=== PATIENT | female | born 1970 | race Hispanic/Latino ===

== ENCOUNTER 2018-11-09 23:03 | Emergency (ER) | payer BC | END 2018-11-10 01:40 | disposition home or self-care (01) | LOC: EDH 23:03 | DX: K59.00 Constipation, unspecified (principal); E11.9 Type 2 diabetes mellitus without complications; I10 Essential (primary) hypertension; E78.00 Pure hypercholesterolemia, unspecified; Z90.710 Acquired absence of both cervix and uterus; Z90.49 Acquired absence of other specified parts of digestive tract; Z79.899 Other long term (current) drug therapy ==

== ENCOUNTER 2023-01-17 19:20 | Observation (INO) | payer BC, OTHER ==
[~2023-01-17] VITALS: Ht 167.6 cm; Wt 98.4 kg
[2023-01-17 22:14] LABS: BASOPHILS # (AUTO) 0.07 K/uL (0.00-0.20); BASOPHILS % (AUTO) 0.7 % (0.0-5.0); EOSINOPHILS # (AUTO) 0.21 K/uL (0.00-0.70); EOSINOPHILS % (AUTO) 2.1 % (0.0-8.0); HEMATOCRIT 39.7 % (36-48); IMMATURE GRANULOCYTE ABSOLUTE 0.02 K/uL (0-1); LYMPHOCYTES # (AUTO) 3.9 K/uL (1.0-4.8); LYMPHOCYTES % (AUTO) 39.2 % (21.0-51.0); MEAN CORPUSCULAR HEMOGLOBIN 30.4 pg (27.0-33.0); MEAN CORPUSCULAR HGB CONC 33.8 g/dL (32.0-36.0); MONOCYTES # (AUTO) 0.7 K/uL (0.1-1.0); MONOCYTES % (AUTO) 6.9 % (3.0-13.0); NEUTROPHILS % (AUTO) 50.9 % (40.0-77.0); PLATELET COUNT (AUTO) 218 K/uL (130-400); RED BLOOD CELL COUNT(AUTO) 4.41 MIL/uL (4.00-5.50); WHITE BLOOD COUNT (AUTO) 9.8 K/uL (4.8-10.8)
[2023-01-17 22:17] LABS: APPEARANCE,URINE CLEAR (CLEAR); BILIRUBIN,URINE NEGATIVE (NEGATIVE); COLOR,URINE LIGHT-YELLOW (YELLOW); GLUCOSE, URINE (UA) NEGATIVE (NEGATIVE); KETONES,URINE NEGATIVE (NEGATIVE); LEUKOCYTE ESTERASE ,URINE NEGATIVE Leu/uL (NEGATIVE); NITRATE,URINE 2+ (NEGATIVE); OCCULT BLOOD,URINE NEGATIVE (NEGATIVE); PH,URINE 5.5 (5.0-8.0); PROTEIN,URINE NEGATIVE (NEGATIVE); UROBILINOGEN,URINE 0.2 mg/dL (0.2-1.0)
[2023-01-17 22:18] LABS: ADD UA MICROSCOPIC YES
[2023-01-17 22:21] LABS: BACTERIA,URINE FEW /HPF (None Seen); MUCUS,URINE RARE LPF (None Seen); RBC,URINE 0-1 /HPF (0-1); SQUAMOUS EPITHELIAL CELL,UR RARE /HPF (0-2)
[2023-01-17 22:22] LABS: CREATININE 0.7 mg/dL (0.5-1.5); POTASSIUM 3.8 mmol/L (3.5-5.1)
[2023-01-17 22:30] LABS: ALBUMIN 3.7 g/dL (3.5-5.0); BILIRUBIN,TOTAL 0.5 mg/dL (0.2-1.0); TOTAL PROTEIN, SERUM 7.7 g/dL (6.0-8.3)
[2023-01-18] MEDS ORDERED: IOHEXOL-350 75 ML VIAL IV ONE (01:23)
[2023-01-18] MEDS ORDERED: GLUCAGON 1MG KIT 1 MG ML IM PRN (04:30)
[2023-01-18] MEDS ORDERED: POTASSIUM CHLORIDE 20MEQ/100ML 100 ML IV PRN (04:30)
[2023-01-18] MEDS ORDERED: CEFTRIAXONE 1G VIAL 1 GM in 0.9%NACL 50ML 50 ML IV SCH (04:30)
[2023-01-18] MEDS ORDERED: ONDANSETRON 4MG INJ IV PRN (04:30)
[2023-01-18] MEDS ORDERED: MAGNESIUM 2GM PREMIX 50ML 50 ML IV PRN (04:30)
[2023-01-18] MEDS ORDERED: DEXTROSE 50%-WATER 50 ML DISP.SYRIN IV PRN (04:30)
[2023-01-18 05:10] VITALS: BP 104/65; PULSE 70; RESP 20
[2023-01-18] MEDS: 0.9%NACL 1000ML 1,000 ML IV SCH (05:20)
[2023-01-18 05:28] LABS: BASOPHILS # (AUTO) 0.05 K/uL (0.00-0.20); BASOPHILS % (AUTO) 0.6 % (0.0-5.0); EOSINOPHILS # (AUTO) 0.19 K/uL (0.00-0.70); EOSINOPHILS % (AUTO) 2.4 % (0.0-8.0); HEMATOCRIT 36.9 % (36-48); IMMATURE GRANULOCYTE ABSOLUTE 0.02 K/uL (0-1); LYMPHOCYTES % (AUTO) 38.1 % (21.0-51.0); MEAN CORPUSCULAR HEMOGLOBIN 29.9 pg (27.0-33.0); MEAN CORPUSCULAR HGB CONC 33.9 g/dL (32.0-36.0); MEAN CORPUSCULAR VOLUME 88.3 fL (79-99); MONOCYTES # (AUTO) 0.6 K/uL (0.1-1.0); MONOCYTES % (AUTO) 8.2 % (3.0-13.0); NEUTROPHILS % (AUTO) 50.4 % (40.0-77.0); PLATELET COUNT (AUTO) 202 K/uL (130-400); RED BLOOD CELL COUNT(AUTO) 4.18 MIL/uL (4.00-5.50); RED CELL DISTRIBUTION WIDTH 13.2 % (11.0-15.5); WHITE BLOOD COUNT (AUTO) 7.8 K/uL (4.8-10.8)
[2023-01-18 05:57] LABS: ALBUMIN 3.1 g/dL (3.5-5.0); BILIRUBIN,TOTAL 0.4 mg/dL (0.2-1.0); CREATININE 0.7 mg/dL (0.5-1.5); POTASSIUM 3.9 mmol/L (3.5-5.1); THYROID STIMULATING HORMONE 1.64 uIU/mL (0.36-3.74); TOTAL PROTEIN, SERUM 6.8 g/dL (6.0-8.3); URIC ACID 3.1 mg/dL (2.6-7.2)
[2023-01-18 05:58] LABS: HEMOGLOBIN A1C 5.1 % (4.0-6.0)
[2023-01-18] MEDS: INSULIN HUMULIN R 100 UNIT/ML 3ML SQ SCH ×4 (06:15→21:15)
[2023-01-18] MEDS: CEFTRIAXONE 1G VIAL IVPB SCH (06:34)
[2023-01-18 08:00] VITALS: BP 118/68; PULSE 71; RESP 17; O2SAT 97
[2023-01-18] MEDS: FAMOTIDINE 20MG VIAL IV SCH ×2 (08:36→21:12)
[2023-01-18 12:00] VITALS: BP 122/74; PULSE 70; RESP 17
[2023-01-18 16:00] VITALS: BP 140/74; PULSE 81; RESP 17
[2023-01-18 20:00] VITALS: BP 119/68; PULSE 77; RESP 17; O2SAT 100
[2023-01-18] MEDS ORDERED: ATORVASTATIN 40 MG TABLET PO SCH (21:00)
[2023-01-19] VITALS: BP 120/66; PULSE 79; RESP 18
[2023-01-19 04:00] VITALS: BP 172/70; PULSE 76; RESP 18
[2023-01-19] MEDS: CEFTRIAXONE 1G VIAL IVPB SCH (05:09)
[2023-01-19] MEDS: 0.9%NACL 1000ML 1,000 ML IV SCH (05:11)
[2023-01-19] MEDS: INSULIN HUMULIN R 100 UNIT/ML 3ML SQ SCH ×2 (05:28→12:05)
[2023-01-19 08:00] VITALS: BP 124/72; PULSE 66; RESP 17; O2SAT 98
[2023-01-19] MEDS ORDERED: CLOPIDOGREL 75MG TAB PO SCH (09:00)
[2023-01-19] MEDS ORDERED: ASPIRIN 81 MG EC TAB PO SCH (09:00)
[2023-01-19] MEDS: FAMOTIDINE 20MG VIAL IV SCH (09:30)
[2023-01-19] MEDS ORDERED: MEROPENEM 500 MG in 0.9%NACL 100ML 100 ML IV SCH (09:30)
[2023-01-19] MEDS ORDERED: MEROPENEM 1 GM in 0.9%NACL 100ML 100 ML IVPB SCH (09:30)
[2023-01-19] MEDS ORDERED: COMPOUND IV MISC 1 EACH IVSOLN MISC PRN (10:00)
[2023-01-19] MEDS ORDERED: ASPI-1197 PO (10:24)
[2023-01-19] MEDS ORDERED: LEVO-70 PO (10:25)
[2023-01-19] MEDS ORDERED: LISI2.5T13 PO (10:31)
[2023-01-19 12:00] VITALS: BP 119/71; PULSE 75; RESP 17
[2023-01-20] MEDS ORDERED: AMLODIPINE 2.5 MG TAB PO SCH (09:00)
== END 2023-01-19 15:00 | disposition home or self-care (01) ==
LOC: EDH 19:20 → EDHIP 01-18 04:20 → INTOOBSV 01-18 04:20 → 3AH 01-18 05:10
PROVIDERS: ADMIT Hospitalist; ATTEND Hospitalist
DX: N39.0 Urinary tract infection, site not specified (principal); E11.9 Type 2 diabetes mellitus without complications; E66.9 Obesity, unspecified; E78.5 Hyperlipidemia, unspecified; F41.9 Anxiety disorder, unspecified; I63.9 Cerebral infarction, unspecified; N80.9 Endometriosis, unspecified; Z68.35 Body mass index [BMI] 35.0-35.9, adult; Z90.710 Acquired absence of both cervix and uterus; Z98.890 Other specified postprocedural states
CPT/HCPCS: 84484; 80053 ×2; 85025 ×2; 87088; 81001; 36415 ×2; 93005; 96376 ×2; 96372 ×2; 96361 ×3; 96375; 99285; 83036; 84443; 83735; 84550; 80061; 85651; 87040 ×2; 87077; 87186; 82948 ×7; 82306; 70450; 72125; 70496; 70498; 70551; 97161 ×2; 97116 ×2; 92522; 92610; 96365; 96366; 97530 ×2; J3490 ×3; J0696 ×2; Q9967; J1815; G0378 ×3; J2185; G8980-CH; G8983-CH